=== PATIENT | female | born 1930 | race Caucasian/White ===

== ENCOUNTER 2016-09-28 15:30 | Inpatient (IN) | payer MEDICARE, BC ==
[~2016-09-28] VITALS: Ht 152.4 cm; Wt 83.6 kg
--- NOTE | ~2016-09-28 | HP ---
PATIENT'S NAME: [facility] AGE: 86 Y [address] ROOM: [address] [place] [address] LOCATION: [facility] ADMIT DATE: 09/28/2016 History & Physical DISCHARGE DATE: FAMILY PHYSICIAN: Mohsen Calhoun MD ATTENDING PHYSICIAN: Delmar Perea DATE OF SERVICE: CHIEF COMPLAINT: Right hip pain. HISTORY OF PRESENT ILLNESS: This 86-year-old female, she lives at an assisted living facility in [place], [place], lost her balance and fell onto her right hip yesterday. She uses a walker. She was seen in [place] where x-rays demonstrated an impacted right femoral neck fracture. She was transferred to [facility] for surgical fixation. She denies blackout spells, dizziness, headaches, or blurred vision. She does get short of breath. PAST MEDICAL HISTORY: Lwb-tsuzunn-aquqbrltu diabetes, hypertension, sacroiliitis, depression, chronic anxiety, and insomnia. FAMILY HISTORY: Positive for hypertension and diabetes. ALLERGIES: NONE KNOWN. MEDICATIONS: 1. Cipro. 2. Florastor. 3. Glucophage. 4. K-Tab. 5. Lasix. 6. Levothyroxine. 7. NovoLog. 8. Paxil. 9. Toprol. 10. Flexeril. PAST SURGICAL HISTORY: She has had no orthopedic procedures. SOCIAL HISTORY: PATIENT'S NAME: [facility] AGE: 86 Y [address] ROOM: [address] [place] [address] LOCATION: [facility] ADMIT DATE: 09/28/2016 History & Physical DISCHARGE DATE: FAMILY PHYSICIAN: Mohsen Calhoun MD ATTENDING PHYSICIAN: Delmar Perea No history of smoking or alcohol abuse. She is a and [place] live [place] farm. REVIEW OF SYSTEMS: No blackout spells, dizziness, headaches, or blurred vision. No dysuria, hematuria, or hesitancy. No nausea or vomiting. No chest pain. She does have a little shortness of breath at times. No palpitations. No weight change. No malaise. She is tired a lot. No skin changes. PHYSICAL EXAMINATION: GENERAL: She is a drowsy, poor historian. She is in mild distress due to right hip pain. VITAL SIGNS: Temperature is 98, pulse 92, respirations 16, blood pressure 154/88, and O2 saturation is 92% on 3 L. HEENT: Atraumatic, normocephalic. PERRL, EOMI. TMs clear. Throat clear. NECK: Supple. CHEST: Some faint crackles. No rales. HEART: Regular rhythm. ABDOMEN: Obese soft, and nontender. No masses. SPINE: Nontender. EXTREMITIES: Right hip has exquisite pain with motion. She is tender over the femoral neck. Sensation and motor functions are intact to lower extremities. Pulses good. Reflexes equal. NEUROLOGIC: She is oriented x2. PSYCHIATRIC: Mood and affect appropriate. DIAGNOSTIC DATA: X-rays of her right hip from [place], [place], demonstrate a mildly impacted right femoral neck fracture. IMPRESSION: 1. Impacted right femoral neck fracture. 2. Hypertension. 3. Tfl-hbmkpuj-ytkzsnlii diabetes. 4. Hypothyroidism. 5. Depression. 6. Chronic anxiety. 7. Insomnia. PLAN: Preoperative medical clearance, Dr. Levine is seeing her, followed by percutaneous pinning of the right femoral neck fracture. If the fracture displaces, she might need a hemiarthroplasty. I discussed details of the surgical procedure, risks, benefits, and alternatives, emphasizing anesthetic, neurovascular, and infectious complications. The patient understands and PATIENT'S NAME: CINTHYA [facility]ACKSON [facility] AGE: 86 Y [address] ROOM: [place] [address] LOCATION: [facility] ADMIT DATE: 09/28/2016 History & Physical DISCHARGE DATE: FAMILY PHYSICIAN: Mohsen Calhoun MD ATTENDING PHYSICIAN: Delmar Perea desires to proceed with surgery as planned. She understands that Dr. Perea will be doing the surgery. MD KERA EDWARDS/francy /[id number] D: T: [id number] HISTORY & PHYSICAL
--- NOTE | ~2016-09-28 | OR ---
PATIENT'S NAME: CINTHYA JACKSON [facility] AGE: 86 Y [address] ROOM: [address] [address] LOCATION: [facility] ADMIT DATE: 09/28/2016 OR/Procedure Report DISCHARGE DATE: FAMILY PHYSICIAN: Mohsen Calhoun MD ATTENDING PHYSICIAN: Delmar Blood SURGEON: Delmar Blood MD HEAD PIECE ASSEMBLER: DATE OF PROCEDURE: 09/29/2016 PREOPERATIVE DIAGNOSIS: Nondisplaced subcapital fracture, right hip. POSTOPERATIVE DIAGNOSIS: Nondisplaced subcapital fracture, right hip. OPERATION: ORIF with percutaneous cannulated screw fixation. ANESTHESIA: General ET tube. INDICATIONS: This is an 86-year-old female from [facility], who fell yesterday injuring her right hip. Radiographs showed degenerative changes in the hip, but also nondisplaced slightly angulated subcapital fracture of the right hip. DESCRIPTION OF PROCEDURE: The patient was brought to the operating room, and when satisfactory general anesthesia had been established, she was transferred to the fracture table and the fracture visualized with C-arm. The fracture was reduced with internal rotation and traction that appeared to close the fracture gap seen mostly on the lateral view. The right hip and thigh were prepped and draped in an aseptic manner. The margins of the femoral neck were outlined on the skin with a marker. The 1st guide pin was placed anterior and central as that was where the gap on the x-ray was noted to be. The 2nd was posterior and inferior and 3rd was posterior and superior. The anterior screw was placed 1st. It was measured at 90 and the guide pin over reamed, and a screw placed and tightened to two finger tightness. The inferior screw was placed 2nd and it was 100 mm long, and it tightened down to whole hand tightness. The 3rd screw was placed two finger tightness and it was superior and posterior. The position of all three screws was then checked in multiple angles with the C-arm and accepted. The guide pins were removed. The three wounds were irrigated copiously with saline and closed with skin daphne. Dressings were applied. The patient awakened and sent to the recovery area, having tolerated the procedure well. DELMAR BLOOD MD PATIENT'S NAME: CINTHYA JACKSON [facility] AGE: 86 Y [address] ROOM: [address] [address] LOCATION: [facility] ADMIT DATE: 09/28/2016 OR/Procedure Report DISCHARGE DATE: FAMILY PHYSICIAN: Mohsen Calhoun MD ATTENDING PHYSICIAN: Delmar Blood/francy /[id number] d: 09/30/16 0141 t: 10/01/16 1649, OPERATIVE SUMMARY
--- NOTE | ~2016-09-28 | CON ---
[facility] AGE: 86 Y [address] ROOM: [address] [place], [place] [address] LOCATION: [facility] ADMIT DATE: 09/28/2016 Consultation DISCHARGE DATE: FAMILY PHYSICIAN: PHYSICIAN, UNKNOWN ATTENDING PHYSICIAN: Delmar Perea REFERRING PHYSICIAN: Edenilson MCLEAN REQUESTING PHYSICIAN: Delmar Perea MD. REASON FOR CONSULTATION: Preoperative medical optimization. HISTORY OF PRESENT ILLNESS: The patient is an 86-year-old female who is not a very good historian and whose past medical history is gathered from accompanying records. She has sustained a mechanical fall while pivoting at assisted living earlier today. She was found to have a right hip fracture. This was in [place]. She was transferred to [facility] for surgical fixation. Unfortunately at this point, the patient is quite sedated with opioids due to her pain. While she is appropriate, awake and alert, and oriented, she is not able to tell me about her medical problems. She tells me that she is always short of breath, but "does not show." She denies any history of chest pain or cardiac problems. She denies any fevers, chills, nausea, vomiting, diarrhea, shortness of breath, or palpitations that were associated with her mechanical fall. REVIEW OF SYSTEMS: All systems have been reviewed and are negative aside from pertinent positives mentioned above. PAST MEDICAL HISTORY: As gathered from accompanying information is that of, 1. Voo-xcxjzar-tfmrtqqkv diabetes. 2. Essential hypertension. 3. Sacroiliitis. 4. Depression. 5. Chronic anxiety. 6. Insomnia. FAMILY HISTORY: The patient is not able to provide though we attempted to gather this. SOCIAL HISTORY: PATIENT'S NAME: [facility] AGE: 86 Y [address] ROOM: [address] [place], [place] [address] LOCATION: [facility] ADMIT DATE: 09/28/2016 Consultation DISCHARGE DATE: FAMILY PHYSICIAN: PHYSICIAN, UNKNOWN ATTENDING PHYSICIAN: Delmar Perea Negative for any history of ongoing toxic habits. She used to live in a farm, but had to move to assisted living recently. MEDICATIONS: 1. Maalox. 2. Hydrochlorothiazide. 3. Lortab. 4. Cyclobenzaprine. 5. Glipizide. 6. Levothyroxine. 7. Lasix. 8. Metformin. 9. Tylenol. 10. Prilosec. 11. Potassium. 12. Chloride. 13. Pepto-Bismol. 14. Paxil. 15. Nystatin. 16. Naproxen. 17. Metoprolol 25 extended release. 18. Colace. 19. Acidophilus. PHYSICAL EXAMINATION: VITAL SIGNS: Temperature 98.2, pulse is 94, respirations of 16, blood pressure 156/90, and saturating 92% on 3 L. She was saturating 85% on room air. GENERAL: Appears as a morbidly obese, elderly female, in no acute distress. NEUROLOGICAL: Nonfocal. EYES: Pupils are equal and reactive to light. LYMPHATIC: No cervical lymphadenopathy. ENDOCRINE: No thyromegaly. LUNGS: Poor inspiratory effort with trace dry crackles at the right base. HEART: Rate is slightly tachycardic and regular with no appreciable murmurs, gallops, or rubs. GI: Abdomen is soft, nontender, and nondistended. : No costovertebral angle tenderness. MUSCULOSKELETAL: Exam is deferred. VASCULAR: 2+ pedal pulses. SKIN: Warm and dry. PSYCHIATRIC: A pleasant elderly female, alert and oriented x3, but sleepy from pain medicine, with appropriate mood, cognition, and affect. LABORATORY DATA: PATIENT'S NAME: CINTHYA JACKSON [facility] AGE: 86 Y [address] ROOM: [place] [address] LOCATION: [facility] ADMIT DATE: 09/28/2016 Consultation DISCHARGE DATE: FAMILY PHYSICIAN: PHYSICIAN, UNKNOWN ATTENDING PHYSICIAN: Delmar Perea Studies significant for glucose of 216. White count of 13.1. Urinalysis showing leukocytes of 25, nitrites are positive, white blood cell count of 5- 10, many bacteria, and 2+ mucus. Chest x-ray unfortunately is quite rotated to the left and does reveal a questionably wide mediastinum with poor inspiratory effort that was difficult to properly interpret this based on this technique. EKG reveals a very poor baseline with apparently sinus rhythm with multiple nonspecific flattening of T-waves. IMPRESSION AND RECOMMENDATIONS: This is an 86-year-old female with, 1. Mechanical fall and right hip fracture. At this point, my understanding is the patient is on a schedule for OR tomorrow. At this point, I do not feel that the patient will require any further medical optimization. However, I think she will benefit from a perioperative echocardiogram which can be done before or after the surgery. 2. Acute hypoxic respiratory failure. Review of the transfer paper which shows the patient was actually saturating well prior to transfer. I believe her hypoxia is likely related to splinting/opioids. We will provide her with incentive spirometry and supplemental oxygen. I believe she will benefit from a better chest x-ray, the one done before she was in lot of pain and we could not get a good image. 3. Hypertension. We will continue her on her current antihypertensive regimen. I would like to get another EKG with a better baseline, now that she is more comfortable. 4. Lcl-jqwzbvr-hbmuvmofh diabetes. We can continue with the patient's metformin, but hold her glipizide while she is n.p.o. 5. Asymptomatic bacteriuria. The patient does not report any urinary symptoms, but I think it will be worthwhile to treat her with 1 dose of ceftriaxone. We will follow up her cultures. I expect whatever pathogens that may go to be covered by perioperative antibiotics. Additional management will depend on clinical course. We will follow the patient with you and address medical issues as they come up. Time dedicated to patient's encounter is 35 minutes. Thank you for allowing us to participate in the care of this shantell patient. MD BELINDA SÁNCHEZ/francy /[id number] d: 09/29/16 0209 t: 10/12/16 0003, CONSULTATION REPORT
--- NOTE | ~2016-09-28 | DS ---
PATIENT'S NAME: CINTHYA JACKSON [facility] AGE: 86 Y [address] ROOM: [address] [address] [place] [facility] [place] DATE: 09/28/2016 Discharge Summary DISCHARGE DATE: 10/02/2016 FAMILY PHYSICIAN: Mohsen Calhoun MD ATTENDING PHYSICIAN: Delmar Perea ADMITTING DIAGNOSIS: Nondisplaced subcapital fracture, right hip. COMORBIDITIES: At the time of admission, urinary tract infection. HOSPITAL COURSE: The patient fell, she had a nondisplaced subcapital fracture of her hip. She was taken to the operating room where this was fixed with 3 percutaneous cannulated screws. On postop day 1, hemoglobin 12.2. Her pain was better. She continued to have some measure of confusion, however. Lovenox was used for DVT prophylaxis. Keflex 500 mg p.o. b.i.d. was ordered for 7 days for her urinary tract infection. Postop day 2, continued to be somewhat slow to move. Postop 3, the wounds were healthy, she was afebrile, hip was stable, she was encouraged to get up and move around, and arrangements were made for her to be transferred to swing bed. Follow up with us in 6-12 days in [place]. Finish Keflex, 7-day course, for her urinary tract infection. Weightbearing as tolerated. OT and PT. Titrate O2 per nasal cannula as needed to keep saturations above 90. Continue Accu-Cheks a.c. and h.s. Comorbidities including acute postop delirium that resolved prior to discharge. Continue daily dressing changes with 4 x 4 gauze and tape. ALAN SOL FOR MD JW MORA/francy /[id number] d: 10/07/16 0143 t: 11/03/16 1058, DISCHARGE SUMMARY
--- NOTE | ~2016-09-28 | ECHO ---
Transthoracic Echocardiography Report (TTE) Demographics Patient Name CINTHYA JACKSON Date of Study 09/29/2016 Patient Number [id number] Visit Number [id number] Date of 1930 Room Number G3306 Gender Female Number Age 86 year(s) Referring Bench Carpenter Win NICOLET, RDCS Physician Colette Physician Interpreting Karissa Cook MD Desulphuring Operator Physician Supervising Ordering Brit Harrison MD, MD/MLP Physician Nurse Stress Production Line Assembler Conclusions Contractility Score Summary Normal Left Ventricular contractility was noted. Summary The estimated left ventricular ejection fraction is 60% with normal internal dimension.WMAs cannot be confidently commented on.Mild to moderate concentric left ventricular hypertrophy. MAC. Mild aortic sclerosis. Trivial TR. TDS. Procedure Type of Study TTE procedure:2D Echocardiogram, M-Mode, Doppler , Color Doppler. Procedure Date Date: 09/29/2016 Start: 07:07 AM Study Location: Inpatient Portable Technical Quality: Adequate visualization Indications:Preop cardiac evaluation. Additional Indications:hypokia Appropriate Use Criteria: 9 Patient Status: Routine HR: 90 bpm BP: 153/70 mmHg M-Mode/2D Measurements LV Diastolic Dimension: 3.52 cm LV Systolic Dimension: 1.99 cm LV Septum Diastolic: 1.48 cm LV PW Diastolic: 1.55 cm AO Root Dimension: 2.7 cm Cardiac Output: 8.67 l/min AV Cusp Separation: 1.3 cm RV Diastolic Dimension: 2.18 cm LA volume: 20 ml LVOT: 2.3 cm RV Base: 2.6 cm LVOT VTI: 23.2 cm RV Mid: 2.47 cm LV Stroke volume: 96.34 ml TAPSE: 2.96 cm TDI-S': 19.6 cm/s Doppler Measurements AV Peak Velocity: 1.39 m/s MV Peak E-Wave: 0.95 m/s AV Peak Gradient: 7.73 mmHg MV Peak A-Wave: 1.19 m/s AV Mean Gradient: 4 mmHg MV E/A Ratio: 0.8 LVOT Peak Velocity: 1.13 m/s MV P1/2t: 62 msec TR Gradient:27.67 mmHg PV Peak Velocity: 0.98 m/s Estimated RAP:3 mmHg PV Peak Gradient: 3.83 mmHg Estimated RVSP: 31 mmHg Estimated PASP: 30.67 mmHg E' Septal Velocity: 0.07 m/s A' Septal Velocity: 0.14 m/s E' Lateral Velocity: 0.1 m/s A' Lateral Velocity: 0.09 m/s Findings Left Ventricle Mild to moderate concentric left ventricular hypertrophy with normal internal dimension and EF.WM cannot be confidently commented on. Right Ventricle Normal right ventricle structure and function. Left Atrium Normal left atrial size. Right Atrium Normal right atrial size. Mitral Valve Mild mitral annular calcification. Aortic Valve The aortic valve is mildly sclerotic. Tricuspid Valve Trivial tricuspid regurgitation by color Doppler. Pulmonic Valve Normal pulmonic valve structure and function. Pericardial Effusion No evidence of pericardial effusion. Miscellaneous Visualized portions of the aortic root and ascending aorta appear normal in size. Pleural Effusion No evidence of pleural effusion. Contractility Score LV regional wall motion:(0-Non visualized 1-Normal 2-Hypokinesis 3-Akinesis 4-Dyskinesis 5-Aneurysm) Signature dtt: Joyce Hancock dtd: 09/29/16 0707 Physician Self Edit
[2016-09-28] MEDS ORDERED: MAALOX LIQ UNIT30 ML PO (18:25)
[2016-09-28] MEDS ORDERED: HYDRODIURIL25 MG PO (18:25)
[2016-09-28] MEDS ORDERED: LORTAB 5-325 M1 EACH PO (18:26)
[2016-09-28] MEDS ORDERED: CYCLOBENZAPRINE5 MG PO (18:26)
[2016-09-28] MEDS ORDERED: GLUCOTROL XL2.5 MG PO (18:27)
[2016-09-28] MEDS ORDERED: LASIX20 MG PO (18:27)
[2016-09-28] MEDS ORDERED: LEVOTHYROXINE100 MCG PO (18:27)
--- NOTE | 2016-09-28 18:27 | NUR ---
Patient is 86 yo female admitted from [facility] after she had a fall after lunch, catching the tip of her walker on the floor/carpet and fell fracturing her right hip. patient is a resident of the [facility] independent living apartments. her smlcstcf-rc-pij gives her history via phone as patient is unable to answer questions. has had narcotics and harpnmwb-ew-jsr states she is forgetful and needs reminding of things. every question that is asked, patient says "I don't know, you can ask my gkhpwzgr-nz-rqy". and so she was telephoned for information. patient has a saline lock in her left hand without erythema or edema noted at the site. however, it is reinforced with tape. education includes call light and the pneumatics. other information is not given to patient as she is groggy and doesn't really seem to understand at this time. Tpbpuuim-qo-nmj is unsure of patient's pneumonia status. we will need to contact the Family Practice clinic in [place], [place] tomorrow. call light is within reach. patient holds onto her stuffed bear and she sleeps. Report is given to night RN.
[2016-09-28] MEDS ORDERED: TYLENOL325 MG PO (18:28)
[2016-09-28] MEDS ORDERED: GLUCOPHAGE1000 MG PO (18:28)
[2016-09-28] MEDS ORDERED: PRILOSEC20 MG PO (18:28)
[2016-09-28] MEDS ORDERED: PEPTO BISMOL LIQ1 ML PO (18:29)
[2016-09-28] MEDS ORDERED: K-TAB 10MEQ10 MEQ PO (18:29)
[2016-09-28] MEDS ORDERED: PAXIL10 MG PO (18:29)
[2016-09-28] MEDS ORDERED: NAPROSYN500 MG PO (18:30)
[2016-09-28] MEDS ORDERED: MYCOSTATIN CREA30 GM TOP (18:30)
[2016-09-28] MEDS ORDERED: TOPROL XL25 MG PO (18:31)
[2016-09-28] MEDS ORDERED: ACIDOPHILUS1 EAC4 PO (18:31)
[2016-09-28] MEDS ORDERED: COLACE100 MG PO (18:31)
[2016-09-28 19:22] LABS: BASOPHIL % 0.2 %; HEMATOCRIT 42.9 % (30.0-46.0); HEMOGLOBIN 13.9 g/dL (10.0-15.0); IMMATURE GRANULOCYTE # 0.1 K/uL (0.0-0.3); IMMATURE GRANULOCYTE % 0.5 %; LYMPHOCYTE # 1.7 K/uL (0.8-4.0); MCH 31.1 pg (27.0-34.0); MCHC 32.4 gm/dL (32.0-36.5); MONOCYTE # 0.9 K/uL (0.0-1.0); MPV 11.7 fl (9.4-12.4); NEUTROPHIL # (ANC) 10.4 K/uL (1.8-7.8); NEUTROPHIL % 79.3 %; NRBC % 0 /100WBC (0-0.00); PLATELET COUNT 188 K/uL (150-450); RBC 4.47 M/uL (3.00-5.00); RDW-CV 15.1 % (11.9-14.6); WBC 13.1 K/uL (4.0-11.0)
[2016-09-28 19:36] LABS: ALBUMIN 3.6 gm/dL (3.5-5.0); ANION GAP 14.2 (10.0-19.0); BLOOD UREA NITROGEN 14 mg/dL (6-24); CALCIUM 9.1 mg/dL (8.5-10.5); CHLORIDE 103 mMol/L (96-110); CO2 26 mMol/L (22-32); CREATININE 0.7 mg/dL (0.5-1.1); ESTIMATED GFR (MDRD EQUATION) > 60; INR - (THERAPEUTIC) 0.95 (0.92-1.07); POTASSIUM 4.2 mMol/L (3.7-5.1); PTT 22 SECONDS (25-32); SODIUM 139 mMol/L (135-145)
[2016-09-28 20:32] LABS: BILIRUBIN URINE NEGATIVE (NEGATIVE); BLOOD URINE 10 /UL (NEGATIVE); COLOR URINE YELLOW (YELLOW); GLUCOSE URINE 50 mg/dL (NEGATIVE); KETONE URINE 15 mg/dL (NEGATIVE); LEUKOCYTES URINE 25 /UL (NEGATIVE); NITRITE URINE POSITIVE (NEGATIVE); PROTEIN URINE NEGATIVE (NEGATIVE); TURBIDITY URINE CLEAR (CLEAR); UROBILINOGEN URINE NORMAL (NORMAL)
[2016-09-28 20:46] LABS: BACTERIA URINE MANY (NEGATIVE); RBC URINE 0-2 #/HPF (NEGATIVE)
[2016-09-28 20:47] LABS: HYALINE CAST URINE 0-2 #/LPF (NEGATIVE); MUCUS URINE 2+ (NEGATIVE)
--- NOTE | 2016-09-29 05:20 | NUR ---
Significant Event: Alert and oriented X3, though forgetful. Sats at 94% on 2L 02. Very hard of hearing, bilateral hearing aids at bedside. Glasses at bedside. 1+ distal pulse, pale, otherwise CSM WNL. Lungs clear and clear and diminished in bases. Encouraged IS use, reaches max of 1250 ml. Esqueda placed at 2004, tea colored. Positive for UTI, cipro and florastor initiated. Has area to L) buttock that appears as a scar, slightly red. Asked patient about this and said it is a healed sore from "sitting on her rocker too much." Pt has been turned q 2 hr. 20G butterfly IV to L) hand by outside facility, flushes well. Attempted to start another IV (X4) without success. Morphine 1 mg given for pain last at 0515. Pre-op checklist started. No permit. NS running at 50 ml/hr. Accuchecks q 6 hr while NPO, was 142 this am. Follow up: Echo this am (do not have to have echo done prior to OR).
--- NOTE | 2016-09-29 11:27 | NUR ---
A-CONSULT RECEIVED, PER HIP FX ORDERS TO OR TODAY FOR R)HIP FX HT: 64 IN. WT: 83.6 KG. IBW: 54 KG. BMI: 35.9 LABS REVIEWED: GLU 216, PREALB 26 MEDS: LASIX, PAXIL GLUCOPHAGE, PROTONIX, NOVOLOG (MOD SS), FLEXERIL, PEPCID, MORPHINE, CIPRO DIET RX: NPO. APPETITE AND PO INTAKE GOOD PRIOR TO ADMIT. NO UNPLANNED WT LOSS REPORTED. EST NUTR NEEDS: [id number] KCALS (15-20 KCALS/KG) 81-108 GM PROTEIN (1.5-2.0 GM/KG IBW) 1 ML FLUID/KCAL D-NOT AT NUTRITION RISK; NO NUTRITION DX IDENTIFIED I-ADVANCE DIET WHEN MEDICALLY INDICATED M/E-WILL ASSIST NEEDED
--- NOTE | 2016-09-29 14:45 | NUR ---
Called patients mariela Reveles #[phone] and explained my role. They would like patient to go to the swing bed in [place], [place] following surgery. Patients doctor is Dr Winter in [place]. 1505 called [facility] and left a message for Danae inquiring about beds for Fri/Sat #[phone].
--- NOTE | 2016-09-29 17:04 | NUR ---
Significant Event: Pt alert and oriented but forgetful. Pt groaned from pain most of the morning. Given morphine IV for pain. Pt [place] bilateral hearing aids. Lungs clear but clear and diminished at bases. No extra heart sounds noted. Pt complained of dry mouth and dry throat, toothetes to help with dryness. Pt has palma cath, positive for UTI. No BM this shift. Pt left for surgery around 1530. Pt has reddened closed area on left buttocks from a previous sore aloe vesta turn q2hr. Pt pulled IV from left hand new IV placed in right forearm. Follow up:
--- NOTE | 2016-09-30 04:05 | NUR ---
Significant Event: RETURN TO ROOM AT 1999. CONFUSED TO PLACE AND TIME. KNOWS NAME WHEN ASKED. PATIENT HAD PERCUTANEOUS SCREW FIXATION RIGHT HIP. GAUZE DRSGS DRY-INTACT. IV FLUIDS INFUSING. BILATERAL FOOT PUMPS TO FEET. UNABLE TO AQUIRE SENSATION DUE TO COGNITIVE ABILITY. TOES FEET WARM TO TOUCH, PEDAL PULSE PRESENT. MOVES FEET-WIGGLES TOES. PATIENT ON 4L NASAL CANNULA TO KEEP SATS ABOVE 90%. HAD GENERAL ANESTHESIA AND A FASCIAL BLOCK. AYANNA TO INCISIONAL AREA. ALLERGY TO PCN AND SULFA. IV RT ANTERIOR FOREARM INFUSING FLUIDS. PATIENT IS WT BEARING TOLERATED. BEEN REPOSITIONED IN BED FOR COMFORT. TAKES WATER OFFERED. NO NAUSEA. DURAN CATHETER EMPTIED 1100ML URINE. HAD CATHETER CARE DONE. LUNG SOUNDS CLEAR DIMINISHED UPPERS AND DIMINISHED IN BASES. PATIENT HAS HX OF EJECTION FRACTION 60%. HS ACCUCHECK WAS 230. INSULIN COVERAGE MODERATE SCALE GIVEN. BEGINNING OF SHIFT PATIENT BECAME AGITATED, PULLED IV OUT, GOWN OFF, NOT LEAVING BLOODPRESSURE CUFF ON FOR VITALSIGNS. IV WAS RESTARTED BY MATTHEW POPE IN RIGHT WRIST. HALDOL 5MG X 2 IV GIVEN BY MATTHEW POPE FOR AGITATION. 2124 WRIST RESTRAINTS APPLIED. AID CAME LATER TO SIT WITH PATIENT. MS 2 MG IV GIVEN BY MATTHEW RN, SEE MAR. PATIENT MORE CALMER REST OF NOC. RESTRAINTS REMOVED AT 149. Follow up:
[2016-09-30 05:14] LABS: HEMOGLOBIN 12.7 g/dL (10.0-15.0)
--- NOTE | 2016-09-30 12:50 | NUR ---
Danae with [facility] called back. Let her know consult stated 2-4 days to plan discharge. 1342 Faxed referral info #[phone].
--- NOTE | 2016-09-30 16:40 | NUR ---
Significant Event: PATIENT ALERT, CONFUSED AT TIMES. DRESSING TO R) HIP C/D/I. CSM ASSESSMENTS WNL TO R) LEG. RECEIVED NORCO 1 TAB AT 1551 FOR C/O PAIN WITH ACTIVITY. UP TO CHAIR AND BSC, WITH 2 ASSIST, USE OF WALKER/GAIT BELT. DURAN REMOVED AT 1400 WITH 2700ML OUT, NO VOID AT THIS TIME. HAD LARGE BM. ACCUCHECK 164 AT 1100. IS ENCOURAGED UP TO 500. O2 AT 3L/NC. BILATERAL FOOT PUMPS ON AND ICE BAG TO R) HIP. INITIAL DOSE OF LOVENOX GIVEN AT 1600. Follow up:
--- NOTE | 2016-10-01 03:52 | NUR ---
Significant Event: ALERT, CONFUSED AT TIMES-FORGETS. SAT UP IN RECLINER CHAIR. RETURN TO BED WITH 2 HEAVY ASSIST, GAITBELT AND WALKER. UNSTEADY GAIT. RT HIP DRSGS DRY-INTACT WITH ICE BAG. FOOT PUMPS TO FEET. INCENTIVE SPIROMETER USAGE 1000-750. TAKES FLUIDS OFFERED. VOIDED ON COMMODE AND BEDPAN AND WAS INCONTINENT OF URINE LARGE AMOUNT. MOISTURE BARRIER APPLIED TO BUTTOCK AND ABD FOLDS REDNESS. 02 ON 2 L NASAL CANNULA. AT 2300 ACCUCHECK 167. GIVEN 2 UNITS OF NOVOLOG FOR COVERAGE. NOW ACCUCHECKS ARE AC AND HS SCHEDULES. Follow up:
--- NOTE | 2016-10-01 08:40 | NUR ---
Danae with [facility] called with some questions and would like some updated information faxed to them. She also wanted me to know they do not have therapies on the weekend. 0940 Faxed updates. 1000 Spoke to [facility] and [facility] Therapy could see her Tuesday morning before she left and then would only miss Tuesday. Gave ambulance cert to [facility]. 1010 Danae called. Got info and will give to doctor to see if they will accept. [address] Elin Lozano #[phone] opt 0, will accept tomorrow. Must be switched to oral pain meds and they want a current CBC results in a nurse to nurse before she leaves. [address] Perea #[phone] and updated, fine with dismissal tomorrow. Given doc #. Plan for 1030 discharge. Called Yin with EMS. 1030 dismissal tomorrow. Updated charge nurse Danielle. Left a message for mariela Reveles #[phone]. Note placed on chart with doc to doc #, nurse #, discharge time and request for CBC report before dismissal. This was also communicated to charge nurse Ivory as patient will be transferred to [facility] when [facility] closes today.
--- NOTE | 2016-10-01 13:58 | NUR ---
Significant Event: AO but confused at times. Up with heavy 2 assist. Dressing is dry and intact to R) hip. AC&HS accuchecks on moderate scale. VSS. CSM WNL. Incontinent x3. Suppose to go to [facility] maybe tomorrow. Follow up:
--- NOTE | 2016-10-02 04:03 | NUR ---
Significant Event: Alert and oriented X3. Vital signs stable. Sats at 92% on RA. Dressing to R) hip is CDI. Incontinent of urine. No BM this shift, passing flatus. IV SL to R) wrist. Turned q 2 hr. Aloe vest applied. Minimal pain. Accucheck at HS was 155. Scheduled tylenol given for pain. CSM WNL. Follow up: Clark LYNN @ 1030.
[2016-10-02 09:47] LABS: HEMATOCRIT 44.2 % (30.0-46.0); HEMOGLOBIN 14.8 g/dL (10.0-15.0)
--- NOTE | 2016-10-02 10:36 | NUR ---
Is A/O but forgetful.Rt.hip gauze drsg & paper tape is D/I.Is heavy 2 assist to get up.Is incont.of urine alot of the times.CMS is good.Had a stool on the 1st.Had pneumonia shot prior to leaving.Eating & drinking ok.
--- NOTE | 2016-10-02 12:30 | NUR ---
DISMISSED PER CART WITH AMBULANCE ATTENDANTS TO GO TO [facility] IN [place].TRANSFER PAPERS SENT WITH ATTENDANTS.PNEUMONIA VACCINE & PAIN PILL GIVEN PRIOR TO BEING DISMISSED.
== END 2016-10-02 12:35 | disposition swing bed (61) | DRG 480 ==
LOC: G3N 17:12 → GMSU 10-01 16:41
PROVIDERS: ADMIT Orthopaedic Surgery
PROC: 0QS604Z Reposition Right Upper Femur with Internal Fixation Device, Open Approach (ICD-10-PCS; principal; 2016-09-29)
DX: S72.011A Unspecified intracapsular fracture of right femur, initial encounter for closed fracture (principal); J96.01 Acute respiratory failure with hypoxia; G93.40 Encephalopathy, unspecified; N39.0 Urinary tract infection, site not specified; W19.XXXA Unspecified fall, initial encounter; E11.9 Type 2 diabetes mellitus without complications; I10 Essential (primary) hypertension; F32.9 Major depressive disorder, single episode, unspecified; F41.9 Anxiety disorder, unspecified; G47.00 Insomnia, unspecified; E03.9 Hypothyroidism, unspecified
CPT/HCPCS: C1713; G0009; J0690; J1630; J1650; J1940; J2001; J2270; J7030

== ENCOUNTER → 2016-09-28 | Outpatient (CLI) | payer MEDICARE, BC ==
[~2016-09-28] MED LIST: ACIDOPHILUS1 EAC4 PO; COLACE100 MG PO; CYCLOBENZAPRINE5 MG PO; GLUCOPHAGE1000 MG PO; GLUCOTROL XL2.5 MG PO; HYDRODIURIL25 MG PO; K-TAB 10MEQ10 MEQ PO; LASIX20 MG PO; LEVOTHYROXINE100 MCG PO; LORTAB 5-325 M1 EACH PO; MAALOX LIQ UNIT30 ML PO; MYCOSTATIN CREA30 GM TOP; NAPROSYN500 MG PO; PAXIL10 MG PO; PEPTO BISMOL LIQ1 ML PO; PRILOSEC20 MG PO; TOPROL XL25 MG PO; TYLENOL325 MG PO
== END | disposition disaster alternative care site (69) ==
LOC: GAMB 10:25
DX: S72.001A Fracture of unspecified part of neck of right femur, initial encounter for closed fracture (principal); M25.551 Pain in right hip; X58.XXXD Exposure to other specified factors, subsequent encounter
CPT/HCPCS: A0425; A0428